=== PATIENT | male | born 1950 | race Caucasian/White ===

== ENCOUNTER 2019-06-24 14:29 | Outpatient (CLI) | payer MEDICARE ==
--- NOTE | 2019-06-25 05:05 | Ultrasound Report ---
Reason: HEPATITIS C Procedure Date: 06/24/2019 Accession Number: [id number] / [id number] Procedure: US - Abdomen Limited CPT Code: FULL RESULT: EXAM: ABDOMEN ULTRASOUND LIMITED, RUQ EXAM DATE: 06/24/2019 03:20 PM. CLINICAL HISTORY: HEPATITIS C. COMPARISON: None. TECHNIQUE: Real-time scanning was performed with static images obtained. FINDINGS: Liver: No focal liver lesion identified. 14.3 cm. Main portal vein flow: Hepatopetal. Gallbladder: Normal. No stones, wall thickening, or sonographic Waldron's sign. Biliary System: CBD measures 4 mm. No intrahepatic or extrahepatic ductal dilatation. Other: None. IMPRESSION: No focal liver lesion identified. RADIA
== END 2019-06-24 14:30 | disposition home or self-care (01) ==
LOC: DI 14:29
PROVIDERS: ATTEND Internal Medicine
DX: B19.20 Unspecified viral hepatitis C without hepatic coma (principal)
CPT/HCPCS: 76705

== ENCOUNTER 2019-12-28 10:49 | Outpatient (CLI) | payer MEDICARE ==
[2019-12-28] MEDS ORDERED: IOVERSOL 320 50 ML VIAL ONE (10:57)
[2019-12-28] MEDS ORDERED: IOVERSOL 320 100 ML VIAL IVP ONE (10:57)
[2019-12-28] MEDS: IOVERSOL 320 50 ML VIAL PO ONE (15:04)
[2019-12-28] MEDS: IOVERSOL 320 100 ML VIAL IVP ONE (15:04)
--- NOTE | 2019-12-29 10:53 | CT Report ---
Reason: ABNORMAL WEIGHT LOSS Procedure Date: 12/28/2019 Accession Number: [id number] / [id number] Procedure: CT - Abdomen/Pelvis W CPT Code: Final Report FULL RESULT: EXAM: CT ABDOMEN AND PELVIS EXAM DATE: 12/28/2019 01:06 PM. CLINICAL HISTORY: ABNORMAL WEIGHT LOSS. History of hepatitis C. COMPARISONS: ABDOMEN LIMITED 06/24/2019 3:02 PM. TECHNIQUE: Routine helical CT imaging was performed through the abdomen and pelvis. IV contrast: OPTIRAY 320. Enteric contrast: Yes. Reconstructions: Coronal and sagittal. In accordance with CT protocol optimization, one or more of the following dose reduction techniques were utilized for this exam: automated exposure control, adjustment of mA and/or KV based on patient size, or use of iterative reconstructive technique. FINDINGS: Lung Bases: Unremarkable. Liver: Normal overall size and enhancement. Smooth capsular contour. Subcapsular low-attenuation in segment 3 and segment 4 adjacent anterior aspect of falciform ligament consistent with focal fatty deposition, series 3 images 16-18 . A few additional tiny nonspecific low-attenuation foci elsewhere and liver, largest measuring 6 x 6 x 7 mm subcapsular in segment 7, series 3 image 18/coronal image 37. Gallbladder/Bile Ducts: Unremarkable. Spleen: Unremarkable. Pancreas: Unremarkable. Adrenal Glands: Unremarkable. Kidneys: 5 mm low-attenuation cortical focus in left mid to upper pole, series 3 image 31 most likely represents a cyst. Imaging follow-up recommended for this finding. No mass suspicious for malignancy. Normal overall renal size, contour and enhancement. No radiopaque stones or hydronephrosis. Ureters unremarkable. Perinephric soft tissues unremarkable. Peritoneal Cavity/Bowel: Nonspecific wall prominence in contracted distal descending colon, sigmoid and rectum with mild increased vascular/lymphatic prominence around these contracted segments and a few slightly prominent subcentimeter pelvic lymph nodes. No pathologic sized anna enlargement. No gross surrounding edema. No discrete mass. No free fluid, free air, abscess or obstruction. Appendix normal in appearance. Pelvic Organs: Normal. The bladder and visualized pelvic organs are within normal limits. Vasculature: Mild calcified atherosclerosis. No aneurysms or other significant abnormality. Bones: No bone lesions suspicious for malignancy. Mild spondylotic changes in thoracic and lumbar spine. No acute bone abnormality. Other: Small fat-containing umbilical hernia without inflammation. IMPRESSION: 1. Tiny nonspecific low-attenuation foci in liver, not seen on prior ultrasound. Overall characteristics not suggestive of malignancy. In a patient with history of hepatitis C, consideration of follow-up examination in 6 months would be recommended. Consideration of MRI as imaging modality for follow-up recommended. 2. Nonspecific mild wall prominence within contracted distal colon and rectum without discrete focal mass or obstruction. No gross surrounding inflammatory change. A few slightly prominent subcentimeter lymph nodes are seen without pathologic sized anna enlargement. 3. No acute abnormality otherwise seen. No definite cause of patient weight loss otherwise identified. Exam as detailed above. RAD[facility]
== END 2019-12-28 10:50 | disposition home or self-care (01) ==
LOC: LAB 10:49
PROVIDERS: ATTEND Internal Medicine
DX: R63.4 Abnormal weight loss (principal); R93.3 Abnormal findings on diagnostic imaging of other parts of digestive tract; R93.2 Abnormal findings on diagnostic imaging of liver and biliary tract; Z86.19 Personal history of other infectious and parasitic diseases
CPT/HCPCS: 36415; 74177; 82565; Q9967

== ENCOUNTER 2020-11-16 13:22 | Outpatient (CLI) | payer MEDICARE, MEDICAID ==
[2020-11-16] MEDS ORDERED: IOPAMIDOL-300 50 ML VIAL ONE (13:42)
[2020-11-16] MEDS ORDERED: IOVERSOL 320 100 ML VIAL IVP ONE ×2 (13:42→16:00)
--- NOTE | 2020-11-16 17:17 | CT Report ---
PROCEDURE: Abdomen/Pelvis W INDICATIONS: ABD PAIN, ULCERATIVE COLITIS, ANAL OR RECTAL PAIN, CONTRAST: IV CONTRAST: Optiray 320 ml: 100 PO CONTRAST: Isovue 300 ml50 TECHNIQUE: After the administration of oral and intravenous contrast, 5 mm thick sections acquired from the diap hragms to the symphysis. 5 mm thick coronal and sagittal reformats were acquired. For radiation dos e reduction, the following was used: automated exposure control, adjustment of mA and/or kV accordin g to patient size. COMPARISON: CT abdomen and pelvis 12/28/2019. FINDINGS: Image quality: Excellent. ABDOMEN: Lung bases: Lung bases are clear. Heart size is normal. Solid organs: Liver and spleen are normal in size and enhancement. Tiny hepatic hypodense foci which are unchanged compared to the prior exam and most likely represent benign cysts. Gallbladder is unr emarkable. Biliary system is non dilated. Pancreas enhances normally. No adrenal nodules. Kidneys demonstrate normal size and enhancement, without hydronephrosis. Tiny left kidney cortical hypodensi ty which is too small to further characterize but unchanged. Peritoneum and bowel: Stomach is not distended. There is no small bowel obstruction. There is abnorm al mural enhancement of the rectum extending proximally to near the splenic flexure. This is more new or increased. There are multiple small pericolonic lymph nodes adjacent to the descending and sigmoi d colon. There are prominent pericolonic blood vessels. There may be mural enhancement involving the right colon. No obvious perianal fistula. No fluid collection. No ascites. No pneumoperitoneum. No pn eumatosis intestinalis. Nodes and vessels: No retroperitoneal or mesenteric adenopathy by size criteria. Aorta and inferior vena cava are normal in size. Miscellaneous: Tiny fat-containing periumbilical hernia. PELVIS: Genitourinary: Bladder wall thickness is normal. Left hydrocele is suspected. Miscellaneous: No inguinal hernias or adenopathy. Bones: No suspicious bony lesions. No significant sclerosis at the SI joints. No vertebral body comp ression fractures. DDD at L4-L5 and L5-S1. IMPRESSION: 1. Abnormal colonic mural enhancement extending from the rectum into the descending colon. There may also be possible abnormal enhancement in the right colon. Findings in keeping with inflammation due t o the provided history of ulcerative colitis. -Colonoscopy for further evaluation may be helpful if not recently performed. 2. No fluid collection. No pneumoperitoneum. 3. Small reactive pericolonic lymph nodes. 4. No obvious perianal fistula. -If concern for occult fistula consider perianal fistula MRI. Reviewed by: Eliseo Hall MD on 11/16/2020 5:16 PM PST Approved by: Eliseo Hall MD on 11/16/2020 5:16 PM PST Station ID: [id number]
== END 2020-11-16 13:23 | disposition home or self-care (01) ==
LOC: DI 13:22
PROVIDERS: ATTEND Internal Medicine
DX: K51.90 Ulcerative colitis, unspecified, without complications (principal); R10.84 Generalized abdominal pain; K62.89 Other specified diseases of anus and rectum; R63.4 Abnormal weight loss
CPT/HCPCS: 36415; 74177; 80053; 85025; Q9967

== ENCOUNTER 2020-11-16 13:42 | Outpatient (CLI) | payer MEDICARE, MEDICAID ==
[2020-11-16 14:07] LABS: BASOPHILS % (AUTO) 0.5 %; EOSINOPHILS # (AUTO) 0.3 10^3/uL (0.0-0.7); EOSINOPHILS % (AUTO) 4.1 %; HCT - HEMATOCRIT 43.5 % (42.0-52.0); HGB - HEMOGLOBIN 14.5 g/dL (14.0-18.0); LYMPHOCYTES # (AUTO) 1.7 10^3/uL (1.5-3.5); LYMPHOCYTES % (AUTO) 22.7 %; MEAN CORPUSCULAR HEMOGLOBIN 29.9 pg (27.0-31.0); MEAN CORPUSCULAR HGB CONC 33.3 g/dL (32.0-36.0); MEAN CORPUSCULAR VOLUME 89.7 fL (80.0-94.0); MEAN PLATELET VOLUME 8.1 fL (7.4-11.4); MONOCYTES # (AUTO) 0.8 10^3/uL (0.0-1.0); MONOCYTES % (AUTO) 10.2 %; NEUTROPHILS # (AUTO) 4.6 10^3/uL (1.5-6.6); NEUTROPHILS % (AUTO) 62.1 %; PLT - PLATELET COUNT 199 10^3/uL (130-450); RED BLOOD COUNT 4.85 10^6/uL (4.70-6.10); RED CELL DISTRIBUTION WIDTH 12.8 % (12.0-15.0); WHITE BLOOD COUNT 7.5 x10^3/uL (4.8-10.8)
[2020-11-16 14:24] LABS: ALBUMIN 3.7 g/dL (3.2-5.5); ALBUMIN/GLOBULIN RATIO 1.1 (1.0-2.2); BILIRUBIN,TOTAL 1.7 mg/dL (0.2-1.0); CREATININE 0.9 mg/dL (0.6-1.2); POTASSIUM 4.3 mmol/L (3.5-5.0); TOTAL PROTEIN 7.2 g/dL (6.7-8.2)
== END 2020-11-16 13:43 | disposition home or self-care (01) ==
LOC: LAB 13:42
PROVIDERS: ATTEND Internal Medicine
DX: K51.90 Ulcerative colitis, unspecified, without complications (principal); R63.4 Abnormal weight loss; R10.84 Generalized abdominal pain
CPT/HCPCS: 36415; 80053; 85025

== ENCOUNTER 2022-12-26 15:42 | Outpatient (CLI) | payer MEDICARE, MEDICAID ==
--- NOTE | 2022-12-26 16:53 | XRAY Report ---
PROCEDURE: Chest 2 View X-Ray INDICATIONS: CHRONIC COUGH TECHNIQUE: 2 views of the chest were acquired. COMPARISON: None. FINDINGS: Surgical changes and devices: None. Lungs and pleura: Mild airspace opacities are present at the left lung base. The right lung is clear . Mediastinum: Mediastinal contours appear normal. Heart size is normal. Bones and chest wall: No suspicious bony lesions. Overlying soft tissues appear unremarkable. IMPRESSION: Left basilar pulmonary radiopacities. Follow-up to resolution recommended. Alternatively, CT of the c hest could be used to further characterize findings. Underlying neoplasm cannot be excluded. Reviewed by: Corie Forrester MD on 12/26/2022 4:51 PM PDT Approved by: Corie Forrester MD on 12/26/2022 4:51 PM PDT Station ID: [id number]
== END 2022-12-26 15:43 | disposition home or self-care (01) ==
LOC: DI.S 15:42
PROVIDERS: ATTEND Family Medicine
DX: R05.3 Chronic cough (principal); R91.8 Other nonspecific abnormal finding of lung field

== ENCOUNTER 2023-04-10 15:29 | Outpatient (CLI) | payer MEDICARE ==
--- NOTE | 2023-04-10 20:05 | XRAY Report ---
PROCEDURE: Chest 2 View X-Ray INDICATIONS: POST COVID TECHNIQUE: 2 views of the chest were acquired. COMPARISON: CT chest 01/18/2023 and chest radiograph 12/26/2022 FINDINGS: Surgical changes and devices: None. Lungs and pleura: Previously seen left lower lobe opacities have resolved. No pleural effusion or pn eumothorax. Mediastinum: Mediastinal contours appear normal. Heart size is normal. Bones and chest wall: No suspicious bony lesions. Overlying soft tissues appear unremarkable. IMPRESSION: Previously seen left lower lobe opacities have resolved. No acute cardiopulmonary abnormality. Reviewed by: Toñito Narayan MD on 04/10/2023 8:03 PM PDT Approved by: Toñito Narayan MD on 04/10/2023 8:03 PM PDT Station ID: [id number]
== END 2023-04-10 15:30 | disposition home or self-care (01) ==
LOC: DI.S 15:29
PROVIDERS: ATTEND Internal Medicine
DX: U09.9 Post COVID-19 condition, unspecified (principal)

== ENCOUNTER 2023-09-05 13:53 | Outpatient (CLI) | payer MEDICARE ==
[2023-09-05 20:06] LABS: BASOPHILS # (AUTO) 0.1 10^3/uL (0.0-0.1); BASOPHILS % (AUTO) 0.5 %; EOSINOPHILS # (AUTO) 0.3 10^3/uL (0.0-0.7); EOSINOPHILS % (AUTO) 3.2 %; HCT - HEMATOCRIT 30.7 % (42.0-52.0); HGB - HEMOGLOBIN 8.2 g/dL (14.0-18.0); LYMPHOCYTES # (AUTO) 2.4 10^3/uL (1.5-3.5); LYMPHOCYTES % (AUTO) 26.3 %; MEAN CORPUSCULAR HEMOGLOBIN 17.5 pg (27.0-31.0); MEAN CORPUSCULAR HGB CONC 26.7 g/dL (32.0-36.0); MEAN CORPUSCULAR VOLUME 65.6 fL (80.0-94.0); MEAN PLATELET VOLUME 7.7 fL (7.4-11.4); MONOCYTES # (AUTO) 0.8 10^3/uL (0.0-1.0); MONOCYTES % (AUTO) 8.7 %; NEUTROPHILS # (AUTO) 5.6 10^3/uL (1.5-6.6); NEUTROPHILS % (AUTO) 61.1 %; PLT - PLATELET COUNT 553 10^3/uL (130-450); RED BLOOD COUNT 4.68 10^6/uL (4.70-6.10); RED CELL DISTRIBUTION WIDTH 17.2 % (12.0-15.0); WHITE BLOOD COUNT 9.2 x10^3/uL (4.8-10.8)
[2023-09-05 20:13] LABS: SLIDE REVIEW? Indicated
[2023-09-05 21:05] LABS: PLATELET ESTIMATE, MANUAL INCREASED (>450,000) (NORMAL)
== END 2023-09-05 13:54 | disposition home or self-care (01) ==
LOC: LAB.S 13:53
PROVIDERS: ATTEND Internal Medicine
DX: E29.1 Testicular hypofunction (principal); D64.9 Anemia, unspecified
CPT/HCPCS: 36415; 84403; 85025